=== PATIENT | female | born 1990 | race Two or more races ===

== ENCOUNTER 2020-02-03 12:47 | Emergency (ER) | payer SELFPAY ==
[~2020-02-03] VITALS: Ht 142.2 cm; Wt 63.0 kg
[2020-02-03 13:19] VITALS: BP 96/69
== END 2020-02-03 15:49 | disposition home or self-care (01) ==
LOC: ER 12:47
DX: N30.00 Acute cystitis without hematuria (principal); N76.0 Acute vaginitis
CPT/HCPCS: 81002; 81025